=== PATIENT | male | born 1955 | race Caucasian/White ===

== ENCOUNTER 2016-10-30 15:20 | Emergency (ER) | payer BC ==
[~2016-10-30] VITALS: Ht 180.3 cm; Wt 59.0 kg
[2016-10-30 15:52] VITALS: BP 202/81
[2016-10-30] MEDS ORDERED: IBUP-1060 PO (16:06)
[2016-10-30] MEDS ORDERED: TRAM50TA PO (16:06)
--- NOTE | 2016-10-30 16:06 | RAD ---
Indication fall 2 days previously. Right-sided vein. A single view of the chest was obtained and is compared to an examination May 07, 2015. Multiple films targeted to right ribs were also obtained. A single view of the chest demonstrates a normal heart and pulmonary vasculature. The lungs are clear of acute infiltrates. There is no significant pleural fluid. There is no pneumothorax. Films targeted to right ribs appear unremarkable. IMPRESSION: No acute finding in the chest. Normal plain films right ribs
--- NOTE | 2016-10-30 16:07 | PHYS DOC ---
Past Medical History Past Medical History: Anxiety Past Surgical History: No Surgical History Alcohol Use: Heavy Drug Use: Marijuana Adult General Chief Complaint Chief Complaint: RIB PAIN HPI HPI Patient is a 61 year old male presents to the emergency department with right upper rib pains. Patient reports that yesterday he slipped and fell backwards landing with his back to the armrest of his chair. He denies shortness of breath , cough. He states he has pain with movement. Review of Systems Review of Systems Constitutional: Denies fever or chills [] Eyes: Denies change in visual acuity, redness, or eye pain [] HENT: Denies nasal congestion or sore throat [] Respiratory: Denies cough or shortness of breath [] Cardiovascular: No additional information not addressed in HPI [] GI: Denies abdominal pain, nausea, vomiting, bloody stools or diarrhea [] : Denies dysuria or hematuria [] Musculoskeletal: Right upper back pain Integument: Denies rash or skin lesions [] Neurologic: Denies headache, focal weakness or sensory changes [] Endocrine: Denies polyuria or polydipsia [] Allergies Allergies Allergies Coded Allergies Type Severity Reaction Last Updated Verified codeine Allergy Unknown 10/30/16 Yes Physical Exam Physical Exam Constitutional: Well developed, well nourished, no acute distress, non-toxic appearance. [] HENT: Normocephalic, atraumatic, bilateral external ears normal, oropharynx moist, no oral exudates, nose normal. [] Eyes: PERRLA, EOMI, conjunctiva normal, no discharge. [] Neck: Normal range of motion, no midline tenderness tenderness, supple, no stridor. [] Cardiovascular:Heart rate regular rhythm, no murmur [] Lungs & Thorax: Bilateral breath sounds clear to auscultation, right posterior thorax, 2 cm area of abrasion at ribs 6,7,8. There is mild tenderness palpated in this area. There are no palpable fractures. Chest wall symmetrical inspiration/expiration. There is no subcutaneous air. [] There is no midline thoracic spine tenderness. Abdomen: Bowel sounds normal, soft, no tenderness, no masses, no pulsatile masses. [] Skin: Warm, dry, no erythema, no rash. [] Back: No tenderness, no CVA tenderness. [] Extremities: No tenderness, no cyanosis, no clubbing, ROM intact, no edema. [] Neurologic: Alert and oriented X 3, normal motor function, normal sensory function, no focal deficits noted. [] Psychologic: Affect normal, judgement normal, mood normal. [] Current Patient Data Vital Signs Vital Signs Date Time Temp Pulse Resp B/P (MAP) Pulse Ox O2 Delivery O2 Flow Rate FiO2 10/30/16 15:52 98.2 85 16 98 Room Air 98.2 EKG EKG [] Radiology/Procedures Radiology/Procedures Chest x-ray right rib series reviewed by me, no acute changes. [] Course & Med Decision Making Course & Med Decision Making Pertinent Labs and Imaging studies reviewed. (See chart for details) [] Dragon Disclaimer Dragon Disclaimer This electronic medical record was generated, in whole or in part, using a voice recognition dictation system. Departure Departure Impression: Primary Impression: Contusion, chest wall Disposition: HOME, SELF-CARE Condition: STABLE Referrals: CORA BERNARDO MD (PCP) Patient Instructions: Chest Contusion Additional Instructions: Ice alternating with moist heat to the affected area. Scripts Tramadol Hcl (TRAMADOL HCL) 50 Mg Tablet 50 MG PO Q6HRS Y for PAIN, #12 TAB 0 Refills Prov: MUMTAZ LEW APRN 10/30/16 Ibuprofen (IBUPROFEN) 800 Mg Tablet 800 MG PO PRN Q6HRS Y for INFLAMMATION, #20 TAB Prov: MUMTAZ LEW APRN 10/30/16 Problem Qualifiers Primary Impression: Contusion, chest wall Encounter type: initial encounter Laterality: right Qualified Codes: S20.211A - Contusion of right front wall of thorax, initial encounter MUMTAZ LEW APRN Oct 30, 2016 16:07
== END 2016-10-30 16:13 | disposition home or self-care (01) ==
LOC: ER 15:20
DX: S20.211A Contusion of right front wall of thorax, initial encounter (principal); F41.9 Anxiety disorder, unspecified; F12.10 Cannabis abuse, uncomplicated; Z88.5 Allergy status to narcotic agent; W01.0XXA Fall on same level from slipping, tripping and stumbling without subsequent striking against object, initial encounter; Y93.89 Activity, other specified; Y92.89 Other specified places as the place of occurrence of the external cause; Y99.8 Other external cause status
CPT/HCPCS: 71101; 99284-25

== ENCOUNTER → 2016-11-22 | Outpatient (CLI) | payer BC ==
[2016-10-30 15:52] VITALS: BP 202/81
[~2016-11-22] MED LIST: IBUP-1060 PO; TRAM50TA PO
--- NOTE | 2016-11-22 15:19 | KCIC ---
Indication: Fall and right-sided pain. Time of exam 2:57 PM Chest, 2 views: The heart size is normal. The lungs are hyperinflated consistent with COPD. No parenchymal contusion is seen. There is no pneumothorax. IMPRESSION: COPD. No acute feature is detected. Ribs right: No displaced rib fractures detected. No parenchymal contusion, effusion or pneumothorax is detected. IMPRESSION: No acute abnormality is detected. Electronically signed by: Denis Sullivan MD (11/22/2016 3:16 PM) [id number]
== END | disposition home or self-care (01) ==
LOC: KCIC 14:51
PROVIDERS: ATTEND Physician Assistant Medical
DX: J44.9 Chronic obstructive pulmonary disease, unspecified (principal); R07.81 Pleurodynia; W19.XXXD Unspecified fall, subsequent encounter
CPT/HCPCS: 71020; 71110

== ENCOUNTER → 2017-03-08 | Outpatient (CLI) | payer BC ==
--- NOTE | 2017-03-08 14:37 | KCIC ---
CHEST PA LATERAL dated 03/08/2017 12:00 AM. Comparison: 11/22/2016 Clinical Indication: Cough and chest pain FOR ONE MONTH Findings: PA and lateral views of the chest were obtained. Heart and mediastinal contours within normal limits. Lungs are clear without focal consolidation. Vascular interstitium within normal limits. No pleural effusion or pneumothorax. There is mild hyperinflation. Impression: No acute radiographic abnormality. Electronically signed by: Davidson Johnston MD (03/08/2017 2:34 PM) [id number]
== END | disposition home or self-care (01) ==
LOC: KCIC 13:56
PROVIDERS: ATTEND Family Medicine
DX: R05 Cough (principal); R07.9 Chest pain, unspecified
CPT/HCPCS: 71020

== ENCOUNTER → 2019-08-13 | Outpatient (CLI) | payer OTHER ==
--- NOTE | 2019-08-13 15:25 | RAD ---
EXAM: PA and Lateral Views of the Chest DATE: 08/13/2019 12:00 AM INDICATION: Cough COMPARISON: 03/08/2017 FINDINGS: The heart is not enlarged. Mediastinal and hilar contours are normal. No focal parenchymal airspace opacity. No pleural effusion or pneumothorax. Chronic appearing right posterolateral ninth rib fracture. IMPRESSION: 1. No radiographic evidence for acute cardiopulmonary process. Electronically signed by: Patricio Mcgrath MD (08/13/2019 3:22 PM) JENNY
== END | disposition home or self-care (01) ==
LOC: LAB 14:20
PROVIDERS: ATTEND Physician Assistant Medical
DX: S22.31XA Fracture of one rib, right side, initial encounter for closed fracture (principal); X58.XXXA Exposure to other specified factors, initial encounter; Y93.89 Activity, other specified; Y92.89 Other specified places as the place of occurrence of the external cause; Y99.8 Other external cause status
CPT/HCPCS: 71046

== ENCOUNTER → 2021-05-04 | Outpatient (CLI) | payer MEDICARE ==
--- NOTE | 2021-05-04 15:18 | KCIC ---
EXAM: Chest, 2 views. HISTORY: COPD. Bronchitis. COMPARISON: None. FINDINGS: 2 views of the chest are obtained. There is hyperinflation likely due to emphysema. There i s no infiltrate, pleural effusion or pneumothorax. The heart is normal in size. There are healed rib fractures. IMPRESSION: No acute pulmonary finding. Hyperinflation likely due to emphysema. Electronically signed by: Nusrat Knapp MD (05/04/2021 3:16 PM) [id number]
== END ==
LOC: KCIC 14:41
PROVIDERS: ATTEND Physician Assistant Medical
DX: J44.9 Chronic obstructive pulmonary disease, unspecified (principal); J40 Bronchitis, not specified as acute or chronic
CPT/HCPCS: 71046